=== PATIENT | male | born 1960 | race Caucasian/White ===

== ENCOUNTER → 2016-08-29 | Outpatient (CLI) | payer OTHER ==
[2016-08-29 08:02] LABS: HEMOGLOBIN 13.8 gm/dl (14.0-17.5); RED BLOOD COUNT 4.47 M/UL (4.20-5.50); WHITE BLOOD COUNT 7.8 K/UL (4.5-11.0)
[2016-08-29 08:30] LABS: BUN/CREATININE RATIO 17 (0-10)
== END ==
LOC: LAB 07:29
PROVIDERS: Internal Medicine Nephrology
DX: E78.5 Hyperlipidemia, unspecified (principal); I10 Essential (primary) hypertension; E55.9 Vitamin D deficiency, unspecified
CPT/HCPCS: 36415; 80053; 80061; 84153; 85007; 85027

== ENCOUNTER 2020-06-22 10:09 | Emergency (ER) | payer BC | END 2020-06-22 14:54 | disposition home or self-care (01) | LOC: ER1 10:09 | DX: U07.1 COVID-19 (principal); I10 Essential (primary) hypertension; Z91.041 Radiographic dye allergy status; Z79.899 Other long term (current) drug therapy | CPT/HCPCS: 99283; M0239 ==

== ENCOUNTER → 2020-11-05 | Outpatient (CLI) | payer BC | LOC: ECHO 08:58 → NM 10:00 | DX: I48.91 Unspecified atrial fibrillation (principal); R07.9 Chest pain, unspecified; I70.0 Atherosclerosis of aorta; I07.1 Rheumatic tricuspid insufficiency | CPT/HCPCS: ECHO; 78452; 93017; 93306; A9502 ==

== ENCOUNTER → 2021-11-12 | Outpatient (CLI) | payer BC | LOC: KOH-I 08:28 | DX: M25.562 Pain in left knee (principal); M17.12 Unilateral primary osteoarthritis, left knee | CPT/HCPCS: 73562 ==